=== PATIENT | female | born 1980 | race American Indian/Alaskan Native ===

== ENCOUNTER → 2024-10-13 | Outpatient (CLI) | payer BC, SELFPAY ==
--- NOTE | 2024-10-13 14:00 | XR_ITS ---
Examination: Breast ultrasound, unilateral, left complete Date and time of exam: October 13, 2024 1409 hours INDICATIONS: Mammogram 07/16/2023 BI-RADS 4 suspicious mass 3:00 position left breast, biopsy August 12, 2023 Technique: Real-time cardoso scale ultrasonographic imaging performed left breast including all 4 quadrants as well as nipple retroareolar and axillary region. Findings: 3:00 oval mass lobular margins 8 x 4 x 6 mm 6:00 oval mass lobular margins 10 x 4 x 11 mm 21 x 25 mm left axillary lymph node IMPRESSION: BI-RADS Category 3: Probably benign findings Recommend 1 additional 6 month left breast sonogram follow-up to document stability of left breast nodules described above
--- NOTE | 2024-10-13 14:30 | XR_ITS ---
Examination: Diagnostic digital mammography, unilateral, left Computer aided detection 3-D breast Tomosynthesis, unilateral Date and time of exam: October 13, 2024 1422 hours INDICATIONS: History ultrasound-guided breast biopsy left breast 3:00 nodule August 12, 2023 Technique: Nonmagnified MLO, CC views of the left breast have been obtained, reconstructed from 3-D Tomosynthesis images. R2 computer aided detection program utilized for evaluation of suspicious masses and/or abnormal calcifications. 3-D Tomosynthesis images obtained. Findings: The breast is heterogeneously dense, which may obscure small masses Breast biopsy marker upper outer left breast No suspicious masses Impression: BI-RADS category 2: Benign findings Return to yearly follow-up mammography Please see the left breast sonogram report today indicating 3:00 6:00 nodules and recommend doing 6 month left breast sonogram follow-up
== END | disposition home or self-care (01) ==
LOC: CDIM 13:50
PROVIDERS: PCP Physician Assistant; Referring Provider Student in an Organized Health Care Education/Training Program; Visit Provider Student in an Organized Health Care Education/Training Program
DX: R92.322 Mammographic fibroglandular density, left breast (principal); N63.25 Unspecified lump in the left breast, overlapping quadrants
CPT/HCPCS: 76641; 77061; 77065; G0279

== ENCOUNTER → 2025-01-12 | Outpatient (CLI) | payer BC, SELFPAY ==
[2025-01-23 06:53] LABS: ANA Screen, IFA NEGATIVE (NEGATIVE)
== END | disposition home or self-care (01) ==
LOC: COPL 14:22
PROVIDERS: PCP Physician Assistant; Referring Provider Specialist; Visit Provider Specialist
DX: R11.0 Nausea (principal); R10.13 Epigastric pain; R13.11 Dysphagia, oral phase
CPT/HCPCS: 36415; 84443; 86038

== ENCOUNTER → 2025-01-20 | Outpatient (CLI) | payer BC, SELFPAY ==
--- NOTE | 2025-01-20 10:30 | XR_ITS ---
Examination: Breast ultrasound complete, bilateral Date and time of exam: January 20, 2025 1040 hours INDICATIONS: Left breast sonogram October 13, 2024 3:00 nodule 8 mm 6:00 nodule 11 mm Technique: Real-time grayscale ultrasonographic imaging bilateral breasts, including all 4 quadrants as well as nipple retroareolar and axillary regions. Findings: Sonographic images right breast No cystic or solid mass Sonographic images left breast 3:00 nodule lobular margins 9 x 6 mm 5:00 nodule lobular margins 10 x 12 mm IMPRESSION: BI-RADS Category 3: Probably benign findings One additional 6 month left breast sonogram follow-up is needed to document stability of the 2 solid nodules described above, with lobular margins
--- NOTE | 2025-01-20 11:30 | XR_ITS ---
Examination: Diagnostic digital mammography, bilateral Computer aided detection 3-D breast Tomosynthesis, bilateral Date and time of exam: January 20, 2025 1105 hours Compared to mammograms dating to June 18, 2022 Technique: Nonmagnified MLO, CC views of the breasts to been obtained, reconstructed from 3-D Tomosynthesis images. R2 computer aided detection program utilized for evaluation of suspicious masses and/or abnormal calcifications. 3-D Tomosynthesis images obtained. Findings: The breasts are heterogeneously dense, which may obscure small masses Stable 8 mm oval mass nipple level left breast Breast biopsy marker upper outer left breast with associated breast nodule, please see the left breast sonogram report today IMPRESSION: BI-RADS Category 3: Probably benign findings One additional 6 month left mammogram follow-up is needed to document stability of breast nodules described above
== END | disposition home or self-care (01) ==
LOC: CDIM 10:27
PROVIDERS: Referring Provider Nurse Practitioner Family; Visit Provider Nurse Practitioner Family
DX: R92.333 Mammographic heterogeneous density, bilateral breasts (principal); N63.21 Unspecified lump in the left breast, upper outer quadrant; N63.22 Unspecified lump in the left breast, upper inner quadrant; N63.25 Unspecified lump in the left breast, overlapping quadrants; N63.24 Unspecified lump in the left breast, lower inner quadrant
CPT/HCPCS: 76641; 77062; 77066; G0279

== ENCOUNTER → 2025-04-20 | Outpatient (BNVA) | payer BC, OTHER, SELFPAY | END | disposition home or self-care (01) | PROVIDERS: PCP Physician Assistant; Referring Provider Physician Assistant; Visit Provider Urology | DX: N32.81 Overactive bladder (principal); E66.9 Obesity, unspecified; Z68.31 Body mass index [BMI] 31.0-31.9, adult | CPT/HCPCS: 81003; 99203; G0463 ==

== ENCOUNTER → 2025-07-27 | Outpatient (CLI) | payer BC, OTHER, SELFPAY ==
[2025-07-27 15:45] LABS: Collection Type, Urine Clean Catch
[2025-07-27 16:57] LABS: Bacteria,Urine Rare; Bilirubin,Urine Negative (Negative); Blood,Urine 2+ (Negative); Clarity,Urine Clear (Clear/Hazy); Color,Urine Lt-Yellow (Lt Yel-Yel); Glucose, Urine Negative (Negative); Ketones,Urine Negative (Negative); Leukocyte Esterase,Urine Negative (Negative); Nitrite,Urine Negative (Negative); PH,Urine 6.5 (5.0-7.0); Protein,Urine Negative (Neg - Trace); RBC,Urine 1 /hpf (0-3); Specific Gravity,Urine 1.005 (1.001-1.035); Squamous Epithelial Cell,Urine 2 /hpf (0-5); Urobilinogen,Urine Negative mg/dL (0.0-1.0); WBC,Urine 3 /hpf (0-5)
== END | disposition home or self-care (01) ==
LOC: SLDO 14:56
PROVIDERS: Referring Provider Urology; Visit Provider Urology
DX: R31.0 Gross hematuria (principal)
CPT/HCPCS: 81001

== ENCOUNTER → 2025-09-20 | Outpatient (CLI) | payer BC, OTHER, SELFPAY ==
--- NOTE | 2025-09-20 12:30 | XR_ITS ---
Examination: Breast ultrasound complete, bilateral Date and time: September 20, 2025, 1513 hours INDICATIONS: Mammogram January 20, 2025 8 mm oval mass nipple level left breast breast biopsy marker upper outer left breast Technique: Real-time grayscale ultrasonographic imaging bilateral breasts, including all 4 quadrants as well as nipple retroareolar and axillary regions. Findings: Sonographic images right breast No cystic or solid mass Sonographic images left breast 3:00 nodule indistinct margins 9 x 6 mm 5:00 nodule lobular margins 9 x 7 mm IMPRESSION: BI-RADS Category 4: Suspicious for malignancy Suspicious mass 3 o'clock position left breast with breast biopsy marker, recommend rebiopsy
== END | disposition home or self-care (01) ==
LOC: CDIM 12:44
PROVIDERS: PCP Nurse Practitioner Family; Referring Provider Nurse Practitioner Family; Visit Provider Nurse Practitioner Family
DX: N63.25 Unspecified lump in the left breast, overlapping quadrants (principal); Z87.898 Personal history of other specified conditions
CPT/HCPCS: 76641

== ENCOUNTER → 2025-09-27 | Outpatient (CLI) | payer BC, OTHER, SELFPAY ==
--- NOTE | 2025-09-27 11:45 | XR_ITS ---
Examination: Diagnostic digital mammography, bilateral Computer aided detection 3-D breast Tomosynthesis, bilateral Date and time of exam: September 27, 2025, 1208 hours INDICATIONS: Mammogram January 20, 2025 8 mm oval mass nipple level left breast, breast biopsy marker upper outer left breast with associated nodule Technique: Nonmagnified MLO, CC views of the breasts to been obtained, reconstructed from 3-D Tomosynthesis images. R2 computer aided detection program utilized for evaluation of suspicious masses and/or abnormal calcifications. 3-D Tomosynthesis images obtained. Findings: The breasts are heterogeneously dense, which may obscure small masses Nodule associated with the breast biopsy marker 3 o'clock position left breast noted indistinct margins, please see the left breast sonogram report September 20, 2025 indicating 3:00 nodule left breast suspicious indistinct margins, 9 x 6 mm Impression: BI-RADS Category 4: Suspicious for malignancy Suspicious nodule 3 o'clock position left breast, biopsy is needed to exclude breast carcinoma, this nodule is amenable to ultrasound-guided breast biopsy for diagnosis.
== END | disposition home or self-care (01) ==
LOC: CDIM 11:46
PROVIDERS: Referring Provider Nurse Practitioner Family; Visit Provider Nurse Practitioner Family
DX: R92.343 Mammographic extreme density, bilateral breasts (principal); N63.25 Unspecified lump in the left breast, overlapping quadrants
CPT/HCPCS: 77062; 77066; G0279

== ENCOUNTER → 2025-10-23 | Outpatient (BNVA) | payer BC, OTHER, SELFPAY | END | disposition home or self-care (01) | PROVIDERS: PCP Physician Assistant; Referring Provider Physician Assistant; Visit Provider Urology | DX: N39.0 Urinary tract infection, site not specified (principal) | CPT/HCPCS: 81003 ==

== ENCOUNTER → 2025-10-23 | Outpatient (CLI) | payer BC, OTHER, SELFPAY | END | disposition home or self-care (01) | LOC: SLDO 15:48 | PROVIDERS: Referring Provider Urology; Visit Provider Urology | DX: Z01.89 Encounter for other specified special examinations (principal) | CPT/HCPCS: 87077; 87086; 87186 ==